=== PATIENT | female | born 1960 | race Caucasian/White ===

== ENCOUNTER 2022-12-12 07:27 | Day surgery (SDC) | payer OTHER ==
[2022-12-08 16:06] VITALS: BMI 25.3
[2022-12-12] MEDS ORDERED: PROPOFOL 120 ML ONE (07:50)
[2022-12-12 14:01] VITALS: TEMP 97.5
[2022-12-12 14:07] VITALS: BP 102/54; PULSE 64; RESP 13
== END 2022-12-12 10:30 | disposition home or self-care (01) ==
LOC: FASU-ENDO 07:27
PROVIDERS: ATTEND Internal Medicine Gastroenterology
PROC: 0DJD8ZZ Inspection of Lower Intestinal Tract, Via Natural or Artificial Opening Endoscopic (ICD-10-PCS; principal; 2022-12-12 09:07)
DX: Z12.11 Encounter for screening for malignant neoplasm of colon (principal)